=== PATIENT | female | born 1970 | race African-American/Black ===

== ENCOUNTER 2017-07-15 12:26 | Emergency (ER) | payer BC, OTHER ==
[~2017-07-15] VITALS: Ht 165.1 cm; Wt 81.2 kg
[2017-07-15] MEDS ORDERED: ESTROVEN MOOD400 MCG PO (13:01)
[2017-07-15] MEDS ORDERED: FISH OIL 1,001000 M2 PO (13:01)
[2017-07-15] MEDS ORDERED: ANTIVERT25 MG PO (14:43)
[2017-07-15 15:09] VITALS: BP 132/106
== END 2017-07-15 15:10 | disposition home or self-care (01) ==
LOC: ER 12:26
DX: H83.09 Labyrinthitis, unspecified ear (principal)